=== PATIENT | female | born 1960 | race Caucasian/White ===

== ENCOUNTER 2018-02-14 13:57 | Emergency (ER) | payer OTHER ==
[~2018-02-14] VITALS: Ht 162.5 cm; Wt 93.9 kg
[~2018-02-14 13:57] MED LIST: DAYPRO600 M1 PO
== END 2018-02-14 17:45 | disposition left against medical advice (07) ==
LOC: ED 13:57
DX: M54.6 Pain in thoracic spine (principal); R05 Cough; R09.89 Other specified symptoms and signs involving the circulatory and respiratory systems

== ENCOUNTER → 2020-05-06 | Outpatient (CLI) | payer OTHER | END | disposition home or self-care (01) | LOC: COVID19 15:23 | PROVIDERS: ATTEND Student in an Organized Health Care Education/Training Program | DX: Z20.822 Contact with and (suspected) exposure to COVID-19 (principal) ==

== ENCOUNTER 2021-08-30 05:37 | Emergency (ER) | payer OTHER ==
[2021-08-30 07:52] LABS: BASO % 0.6 % (0.0-1.0); EOS # 0.3 10*3/uL (0.0-0.4); EOS % 4.2 % (1.0-4.0); HEMATOCRIT 40.5 % (37.0-47.0); LYMPH # 1.7 10*3/uL (1.3-4.4); LYMPH % 24.5 % (27.0-41.0); MEAN CELL VOLUME 93.8 fl (81.0-99.0); MEAN CORPUSCULAR HGB 30.6 pg (27.0-31.0); MEAN CORPUSCULAR HGB CONC 32.6 g/dl (33.0-37.0); MEAN PLATELET VOLUME 9.2 fl (9.6-12.3); MONO # 0.7 10*3/uL (0.1-1.0); MONO % 10.7 % (3.0-9.0); NEUT # 4.1 10*3/uL (2.3-7.9); NEUT % 59.9 % (47.0-73.0); PLATELET COUNT AUTOMATED 330 10*3/uL (130-400); RED BLOOD COUNT 4.32 10*6/uL (4.10-5.10); RED CELL DISTRI WIDTH 14.1 % (0-14.5); WHITE BLOOD COUNT 6.9 10*3/uL (4.8-10.8)
[2021-08-30 08:09] LABS: ALKALINE PHOSPHATASE 96 U/L (45-117); BUN 3 mg/dl (7-24); CHLORIDE 113 mmol/L (98-107); CREATININE 0.73 mg/dL (0.55-1.02); LIPASE 163 U/L (73-393); POTASSIUM 4.2 mmol/L (3.5-5.1); SGOT/AST 7 IU/L (3-35); SGPT/ALT 13 U/L (12-78); SODIUM 140 mmol/L (136-145)
[2021-08-30 08:46] LABS: BILIRUBIN Negative (Negative); BLOOD Negative (Negative); CLARITY Clear (Clear); COLOR Yellow (Yellow); GLUCOSE Negative (Negative); KETONE Negative (Negative); LEUKO ESTERASE 2+ (Negative); NITRITE Negative (Negative); SPECIFIC GRAVITY <= 1.005 (1.001-1.030); UROBILINOGEN 0.2 E.U./dl (0.0-1.0)
== END 2021-08-30 10:43 | disposition home or self-care (01) ==
LOC: ED 05:37
PROVIDERS: Emergency Medicine
DX: R10.13 Epigastric pain (principal); R10.32 Left lower quadrant pain; F17.200 Nicotine dependence, unspecified, uncomplicated; Z90.710 Acquired absence of both cervix and uterus

== ENCOUNTER 2024-02-27 22:00 | Emergency (ER) | payer OTHER ==
[~2024-02-27] VITALS: Ht 167.6 cm; Wt 99.8 kg
[2024-02-27] MEDS ORDERED: ALBUTEROL4 MG PO (22:20)
[2024-02-27] MEDS ORDERED: LIPITOR20 MG PO (22:21)
[2024-02-27] MEDS ORDERED: PREDNISONE50 MG PO (22:28)
[2024-02-27] MEDS ORDERED: METHOCARBAMOL500 M1 PO (22:28)
[2024-02-27] MEDS ORDERED: METHOCARBAMOL 500 MG TAB PO ONE (22:30)
[2024-02-27] MEDS ORDERED: methylPREDNISolone sod succ 125 MG VIAL IM ONE (22:30)
[2024-02-27] MEDS ORDERED: Ketorolac Tromethamine 30 MG/ML VIAL IM ONE (22:30)
== END 2024-02-27 22:32 | disposition home or self-care (01) ==
LOC: ED 22:00
DX: G89.29 Other chronic pain (principal); M54.50 Low back pain, unspecified; J44.9 Chronic obstructive pulmonary disease, unspecified; Z79.899 Other long term (current) drug therapy; Z90.710 Acquired absence of both cervix and uterus; Z85.43 Personal history of malignant neoplasm of ovary